=== PATIENT | female | born 1950 ===

== ENCOUNTER → 2023-09-16 | Outpatient (CLI) | payer MEDICARE ==
[2023-09-16 15:29] LABS: Hematocrit 37.5 % (33.0-51.0); Hemoglobin 12.4 g/dL (11.5-16.0); Mean Corpuscular HGB Conc 33.1 g/dL (31.5-36.5); Mean Corpuscular Volume 97 fL (80-100); Mean Platelet Volume 11.1 fL (9.1-12.4); Platelet Count 236 K/mm3 (150-400); RDW Coefficient Variation 12.7 % (11.7-14.2); RDW Standard Deviation 45.1 fL (35.1-46.3); Red Blood Cell Count 3.87 M/mm3 (3.80-5.20); White Blood Cell Count 5.77 K/mm3 (4.00-11.30)
[2023-09-16 16:23] LABS: LDL/HDL RATIO 3.1
[2023-09-16 16:24] LABS: Alanine Aminotransfer (ALT/SGP 46 U/L (12-78); Albumin, Blood 3.9 g/dL (3.4-5.0); Albumin/Globulin Ratio 1.1 (0.8-1.8); Alk Phos 118 U/L (50-136); Anion Gap 8 mmol/L (3-11); Aspartate Aminotrans (AST/SGOT 37 U/L (12-37); Bilirubin, Total 0.6 mg/dL (0.1-1.0); Blood Urea Nitrogen 26 mg/dL (8-24); Bun/Creatinine Ratio 26.7 (12.0-20.0); CHOL/HDL RATIO 4.7; CO2, Blood 30 mmol/L (21-32); Chloride, Blood 106 mmol/L (98-108); Cholesterol 208 mg/dL (50-200); Creatinine, Blood 0.98 mg/dL (0.40-1.00); Globulin, Blood 3.4 g/dL (2.2-4.0); Glomerular Filtration Rate 62 (60-); Glucose, Blood 125 mg/dL (70-99); HDL Cholesterol 44 mg/dL (>39); Low Density Lipoprotein Chol 135 mg/dL (0-110); Potassium, Blood 4.1 mmol/L (3.5-5.5); Sodium, Blood 140 mmol/L (136-145); Total Protein, Blood 7.3 g/dL (6.4-8.2); Triglycerides 143 mg/dL (30-160); Very Low Density Lipoprot Chol 28 mg/dL (6-32)
== END | disposition home or self-care (01) ==
LOC: LAB SHORT 13:41 → LAB 13:41
PROVIDERS: Internal Medicine
DX: I10 Essential (primary) hypertension (principal); R73.03 Prediabetes
CPT/HCPCS: 80053; 80061; 83036; 85027

== ENCOUNTER → 2024-06-04 | Outpatient (CLI) | payer MEDICARE ==
[2024-06-04 20:14] LABS: Bun/Creatinine Ratio 34.4 (12.0-20.0); Calcium, Blood 9.4 mg/dL (8.5-10.1); Creatinine, Blood 0.79 mg/dL (0.40-1.00)
== END ==
LOC: LAB 18:28 → LAB SHORT 18:28
PROVIDERS: Internal Medicine
DX: R73.03 Prediabetes (principal); M81.0 Age-related osteoporosis without current pathological fracture
CPT/HCPCS: 80048; 82306; 83036

== ENCOUNTER → 2024-07-13 | Outpatient (CLI) | payer MEDICARE ==
[2024-07-13 20:22] LABS: Calcium, Blood 9.4 mg/dL (8.5-10.1); Creatinine, Blood 0.83 mg/dL (0.40-1.00); Potassium, Blood 3.6 mmol/L (3.5-5.5)
== END | disposition home or self-care (01) ==
LOC: LAB 18:09 → LAB SHORT 18:09
PROVIDERS: Internal Medicine
DX: E87.6 Hypokalemia (principal)
CPT/HCPCS: 80048

== ENCOUNTER → 2024-11-05 | Outpatient (CLI) | payer MEDICARE | LOC: LAB SHORT 17:39 → LAB 17:39 | DX: N30.00 Acute cystitis without hematuria (principal) | CPT/HCPCS: 87077; 87086; 87186 ==

== ENCOUNTER → 2024-12-16 | Outpatient (CLI) | payer MEDICARE ==
[2024-12-16 18:02] LABS: Hematocrit 37.4 % (33.0-51.0); Hemoglobin 12.3 g/dL (11.5-16.0); Mean Corpuscular HGB Conc 32.9 g/dL (31.5-36.5); Mean Corpuscular Volume 97 fL (80-100); NRBC ABSOLUTE 0.00 K/mm3 (0.00-0.02); NRBC Auto 0.0 /100 WBC (0.0-0.2); Platelet Count 237 K/mm3 (150-400); RDW Coefficient Variation 13.2 % (11.7-14.2); RDW Standard Deviation 46.7 fL (35.1-46.3)
[2024-12-16 20:54] LABS: Alanine Aminotransfer (ALT/SGP 59 U/L (12-78); Albumin, Blood 3.8 g/dL (3.4-5.0); Albumin/Globulin Ratio 1.2 (0.8-1.8); Anion Gap 8 mmol/L (3-11); Aspartate Aminotrans (AST/SGOT 36 U/L (12-37); Bilirubin, Total 0.6 mg/dL (0.1-1.0); Blood Urea Nitrogen 25 mg/dL (8-24); CHOL/HDL RATIO 4.8; CO2, Blood 30 mmol/L (21-32); Calcium, Blood 9.3 mg/dL (8.5-10.1); Chloride, Blood 104 mmol/L (98-108); Cholesterol 224 mg/dL (50-200); Creatinine, Blood 0.80 mg/dL (0.40-1.00); Globulin, Blood 3.2 g/dL (2.2-4.0); Glucose, Blood 111 mg/dL (70-99); HDL Cholesterol 47 mg/dL (>39); LDL/HDL RATIO 2.7; Low Density Lipoprotein Chol 127 mg/dL (0-110); Potassium, Blood 3.7 mmol/L (3.5-5.5); Sodium, Blood 138 mmol/L (136-145); Total Protein, Blood 7.0 g/dL (6.4-8.2); Triglycerides 248 mg/dL (30-160); Very Low Density Lipoprot Chol 49 mg/dL (6-32)
== END ==
LOC: LAB SHORT 17:10 → LAB 17:10
PROVIDERS: Internal Medicine
DX: I10 Essential (primary) hypertension (principal); R73.03 Prediabetes
CPT/HCPCS: 80053; 80061; 83036; 85027